=== PATIENT | male | born 1985 | race Caucasian/White ===

== ENCOUNTER 2017-06-28 09:10 | Emergency (ER) | payer MEDICAID ==
[~2017-06-28] VITALS: Ht 172.7 cm; Wt 114.0 kg
[2017-06-28] MEDS ORDERED: KETOROLAC 60MG/2ML VIAL IM ONE (10:45)
[2017-06-28 11:05] VITALS: BP 131/84
== END 2017-06-28 11:36 | disposition home or self-care (01) ==
LOC: ER 09:56
DX: M54.42 Lumbago with sciatica, left side (principal); Z87.891 Personal history of nicotine dependence
CPT/HCPCS: 93005; 96372; 99283; J1885

== ENCOUNTER 2024-04-02 12:15 | Emergency (ER) | payer MEDICAID ==
[~2024-04-02] VITALS: Ht 172.7 cm; Wt 68.0 kg
[2024-04-02 12:24] VITALS: BP 180/110; PULSE 111; RESP 16; TEMP 100.4; O2SAT 98
== END 2024-04-02 13:47 | disposition home or self-care (01) ==
LOC: ER 12:15
DX: F10.129 Alcohol abuse with intoxication, unspecified (principal); Y90.9 Presence of alcohol in blood, level not specified
CPT/HCPCS: 99283